=== PATIENT | male | born 1985 | race Caucasian/White ===

== ENCOUNTER → 2017-01-31 | Emergency (ER) | payer BC | END | disposition disaster alternative care site (69) | LOC: GAMB 11:38 | DX: R07.9 Chest pain, unspecified (principal); M79.605 Pain in left leg; M25.521 Pain in right elbow; S50.311A Abrasion of right elbow, initial encounter; S00.01XA Abrasion of scalp, initial encounter; M54.9 Dorsalgia, unspecified; V89.9XXA Person injured in unspecified vehicle accident, initial encounter ==